=== PATIENT | male | born 1980 | race Two or more races ===

== ENCOUNTER 2017-12-18 11:08 | Emergency (ER) | payer MEDICAID, OTHER ==
[~2017-12-18] VITALS: Ht 177.8 cm; Wt 113.6 kg
[2017-12-18 11:09] VITALS: BP 149/119
== END 2017-12-18 12:07 ==
LOC: ER 11:08 → EEVIPCON 11:08 → ER 12:07
DX: F41.9 Anxiety disorder, unspecified (principal); I10 Essential (primary) hypertension; Z95.0 Presence of cardiac pacemaker
CPT/HCPCS: 71045; 99284

== ENCOUNTER 2020-04-10 18:30 | Emergency (ER) | payer OTHER ==
[~2020-04-10] VITALS: Ht 175.3 cm; Wt 110.0 kg
[2020-04-10] MEDS ORDERED: aspirin 81mg tab.chew PO ONE (19:05)
[2020-04-10] MEDS ORDERED: normal saline 1000ml 1,000 ML IV ONE (19:05)
--- NOTE | 2020-04-10 19:14 | NUR ---
PT REFUSING A BLOOD DRAW. WILL ATTEMPT TO DRAW FROMO THE IV LINE. GLYNN VALENTIN IN ROOM NOW TO EVALUATE,
[2020-04-10 19:25] LABS: BASOPHILS # (AUTO) 0.1 X10'3 (0-0.2); BASOPHILS % (AUTO) 1.1 % (0-1); EOSINOPHILS # (AUTO) 0.1 X10'3 (0-0.9); EOSINOPHILS % (AUTO) 1.6 % (0-6); HEMATOCRIT 41.8 % (42.0-52.0); HEMOGLOBIN 14.1 g/dl (14.0-17.9); LYMPHOCYTES # (AUTO) 3.6 X10'3 (1.1-4.8); LYMPHOCYTES % (AUTO) 50.1 % (21-51); MEAN CORPUSCULAR HEMOGLOBIN 31.5 PG (27.0-31.0); MEAN CORPUSCULAR HGB CONC 33.8 g/dL (33.0-36.5); MEAN CORPUSCULAR VOLUME 93.2 FL (78-98); MONOCYTES # (AUTO) 0.4 X10'3 (0-0.9); MONOCYTES % (AUTO) 5.2 % (2-12); PLATELET COUNT 215 X10'3 (140-440); RED BLOOD COUNT 4.49 X10'6 (4.70-6.10); WHITE BLOOD COUNT 7.2 X10'3 (4.5-11.0)
[2020-04-10 19:37] LABS: ALANINE AMINOTRANSFERASE 31 U/L (12-78); ALBUMIN 3.4 G/DL (3.4-5.0); ALBUMIN/GLOBULIN RATIO 0.9 (1.1-1.5); ALKALINE PHOSPHATASE 100 IU/L (46-116); ANION GAP 7 (8-16); ASPARTATE AMINO TRANSFERASE 28 U/L (10-37); BILIRUBIN,TOTAL 0.1 MG/DL (0.1-1.0); BLOOD UREA NITROGEN 14 MG/DL (7-18); BUN/CREATININE RATIO 15.1 (5.4-32.0); CALCIUM 8.3 MG/DL (8.5-10.1); CHLORIDE 108 MMOL/L (99-107); CREATININE 0.93 MG/DL (0.60-1.10); GLUCOSE 114 MG/DL (70-104); POTASSIUM 3.7 MMOL/L (3.5-5.1); SODIUM 141 MMOL/L (135-145); TOTAL CARBON DIOXIDE 25.9 MMOL/L (24-32); TOTAL PROTEIN 7.2 G/DL (6.4-8.2); eGFR > 90 ML/MIN
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
[2020-04-10 19:55] VITALS: BP 140/58
[2020-04-11] MEDS ORDERED: PANT-47 PO (04:20)
== END 2020-04-10 19:57 | disposition left against medical advice (07) ==
LOC: ER 18:30
DX: E86.0 Dehydration (principal); R55 Syncope and collapse; R53.83 Other fatigue; I10 Essential (primary) hypertension; F17.210 Nicotine dependence, cigarettes, uncomplicated; Z95.0 Presence of cardiac pacemaker; Z72.89 Other problems related to lifestyle; Z56.0 Unemployment, unspecified; Z59.0 Homelessness; Z79.899 Other long term (current) drug therapy
CPT/HCPCS: 36415; 80053; 83735; 83880; 84484; 85025; 93005; 99284

== ENCOUNTER 2020-04-11 00:31 | Emergency (ER) | payer OTHER ==
[~2020-04-11] VITALS: Ht 175.3 cm; Wt 111.4 kg
[2020-04-11 00:42] VITALS: BP 142/94
[2020-04-11] MEDS ORDERED: ondansetron 4mg rapidly disintigrating tab PO ONE (03:15)
[2020-04-11] MEDS ORDERED: pantoprazole 40mg Tablet.DR PO ONE (03:15)
[2020-04-11] MEDS ORDERED: PANT-47 PO (04:20)
== END 2020-04-11 04:30 | disposition home or self-care (01) ==
LOC: ER 00:32
DX: E86.0 Dehydration (principal); R11.10 Vomiting, unspecified; R10.13 Epigastric pain; R07.89 Other chest pain; I10 Essential (primary) hypertension; K21.9 Gastro-esophageal reflux disease without esophagitis; F17.200 Nicotine dependence, unspecified, uncomplicated; Z72.89 Other problems related to lifestyle; Z59.0 Homelessness; Z56.0 Unemployment, unspecified; Z95.0 Presence of cardiac pacemaker; Z79.899 Other long term (current) drug therapy
CPT/HCPCS: 36415; 83690; 93005; 99284

== ENCOUNTER 2021-05-08 10:19 | Emergency (ER) | payer SELFPAY ==
[~2021-05-08] VITALS: Ht 175.3 cm; Wt 97.7 kg
[~2021-05-08 10:19] MED LIST: PANT-47 PO
[2021-05-08 10:23] VITALS: BP 129/82
== END 2021-05-08 12:04 ==
LOC: ER 10:20
DX: G56.31 Lesion of radial nerve, right upper limb (principal); I10 Essential (primary) hypertension; K21.9 Gastro-esophageal reflux disease without esophagitis; Z72.89 Other problems related to lifestyle; Z59.0 Homelessness; Z56.0 Unemployment, unspecified; Z79.899 Other long term (current) drug therapy
CPT/HCPCS: 29125; 70450; 99284

== ENCOUNTER 2025-01-17 18:19 | Emergency (ER) | payer MEDICAID ==
[~2025-01-17] VITALS: Ht 177.8 cm; Wt 75.0 kg
[2025-01-17 18:24] VITALS: BP 126/63; PULSE 98; RESP 15; TEMP 97.9; O2SAT 99
[2025-01-17 18:59] LABS: BASOPHILS % (AUTO) 0.5 % (0-1); EOSINOPHILS # (AUTO) 0.1 X10'3 (0-0.9); EOSINOPHILS % (AUTO) 1.2 % (0-6); HEMATOCRIT 36.3 % (42.0-52.0); HEMOGLOBIN 12.3 g/dl (14.0-17.9); LYMPHOCYTES # (AUTO) 1.9 X10'3 (1.1-4.8); LYMPHOCYTES % (AUTO) 29.2 % (21-51); MEAN CORPUSCULAR HEMOGLOBIN 29.3 PG (27.0-31.0); MEAN CORPUSCULAR VOLUME 86.2 FL (78-98); MEAN PLATELET VOLUME 8.6 FL (7.4-10.4); MONOCYTES # (AUTO) 0.5 X10'3 (0-0.9); MONOCYTES % (AUTO) 8.3 % (2-12); NEUTROPHILS % (AUTO) 60.8 % (42-75); PLATELET COUNT 172 X10'3 (140-440); RED BLOOD COUNT 4.22 X10'6 (4.70-6.10); WHITE BLOOD COUNT 6.6 X10'3 (4.5-11.0)
--- NOTE | 2025-01-17 19:12 | RADIOLOGY REPORT ---
Clinical History CP Comparison None Without Contrast JAY HUDSON, [id number] TECHNIQUE: AP view of the chest FINDINGS: Left-sided pacemaker. No confluent airspace opacity to suggest pneumonia or alveolar edema. No pleural effusion or pneumothorax identified. Cardiomediastinal silhouette is within normal limits. Visualized osseous structures are grossly intact. IMPRESSION: No evidence of acute cardiopulmonary process. This report was electronically signed by Alejandro Rand MD on 01/17/2025 7:09:15 PM.
[2025-01-17 19:25] LABS: ALANINE AMINOTRANSFERASE 26 U/L (12-78); ALBUMIN 3.7 G/DL (3.4-5.0); ALBUMIN/GLOBULIN RATIO 1.1 (1.1-1.5); ALKALINE PHOSPHATASE 85 IU/L (46-116); ANION GAP 9 (8-16); ASPARTATE AMINO TRANSFERASE 22 U/L (10-37); BILIRUBIN,TOTAL 0.5 MG/DL (0.1-1.0); BLOOD UREA NITROGEN 16 MG/DL (7-18); BUN/CREATININE RATIO 19.8 (10.0-20.0); CALCIUM 8.5 MG/DL (8.5-10.1); CHLORIDE 107 MMOL/L (99-107); CREATININE 0.81 MG/DL (0.60-1.10); GLUCOSE 105 MG/DL (70-104); POTASSIUM 3.9 MMOL/L (3.5-5.1); SODIUM 145 MMOL/L (135-145); TOTAL CARBON DIOXIDE 29.4 MMOL/L (24-32); TOTAL PROTEIN 7.1 G/DL (6.4-8.2); eCRCL 123 ML/MIN; eGFR > 90 ML/MIN
[2025-01-17 19:27] LABS: PRO BRAIN NATRIURETIC PEPTIDE 178 PG/ML (0-125)
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
== END 2025-01-17 22:16 | disposition left against medical advice (07) ==
LOC: ER 18:21
DX: R60.0 Localized edema (principal); I10 Essential (primary) hypertension; Z95.0 Presence of cardiac pacemaker; V89.2XXA Person injured in unspecified motor-vehicle accident, traffic, initial encounter; Y93.89 Activity, other specified; Y92.410 Unspecified street and highway as the place of occurrence of the external cause; Y99.8 Other external cause status
CPT/HCPCS: 36415; 71045; 80053; 83880; 84484; 85025; 93005; 99285

== ENCOUNTER 2025-01-19 | Emergency (ER) | payer MEDICAID ==
[2025-01-19 00:07] VITALS: BP 142/91; PULSE 83; TEMP 97; O2SAT 100
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
[2025-01-19 02:41] VITALS: RESP 15
[2025-01-19] MEDS: ketorolac trometh 30MG/ML vial 30 MG/ML VIAL IM ONE (02:41)
== END 2025-01-19 02:43 | disposition left against medical advice (07) ==
LOC: ER 00:01
DX: S90.31XA Contusion of right foot, initial encounter (principal); G89.11 Acute pain due to trauma; M25.572 Pain in left ankle and joints of left foot; M25.571 Pain in right ankle and joints of right foot; K21.9 Gastro-esophageal reflux disease without esophagitis; I10 Essential (primary) hypertension; F10.90 Alcohol use, unspecified, uncomplicated; Z59.00 Homelessness unspecified; Z95.0 Presence of cardiac pacemaker; Z79.899 Other long term (current) drug therapy; Z56.0 Unemployment, unspecified; V19.40XA Pedal cycle driver injured in collision with unspecified motor vehicles in traffic accident, initial encounter; Y93.55 Activity, bike riding; Y92.89 Other specified places as the place of occurrence of the external cause; Y99.8 Other external cause status; Y90.9 Presence of alcohol in blood, level not specified
CPT/HCPCS: 73590; 73610; 73630; 96372; 99284; J1885

== ENCOUNTER 2025-07-09 10:42 | Emergency (ER) | payer MEDICAID ==
[~2025-07-09] VITALS: Ht 175.3 cm; Wt 74.2 kg
[2025-07-09 10:45] VITALS: BP 119/76; PULSE 83; RESP 16; TEMP 98; O2SAT 98
--- NOTE | 2025-07-09 12:06 | Physician Documentation ---
History of Present Illness ~ General Chief Complaint: See Chief Complaint Stated Complaint: PACEMAKER MALFUNCTION Time Seen by MD: 11:52 Primary Medical Doctor: None History of Present Illness Initial Comments 45-year-old male presents to the ED because he was advised he needs to have his pacemaker interrogated secondary to possible replacement. He is concerned about the battery life. Denies any symptoms denies any chest pain shortness of breath palpitations or any other cardiac abnormality Medication Reconciliation Allergies: Coded Allergies: No Known Allergies (Unverified , 01/19/25) Scheduled Pantoprazole Sodium (PROTONIX tablet), 1 TAB PO DAILY Past Medical History Past Medical History: *CARDIOVASCULAR*, Arrhythmia, Hypertension, GERD Past Surgical History: pacemaker Alcohol Use: Alcoholic Drug Use: none Lives with: Other Lives In: Homeless Occupation: unemployed Review of Systems All Other Systems at this time: Reviewed and Negative ROS As stated above in the HPI, otherwise all systems are reviewed and negative. Physical Exam Physical Exam Vital Signs: Temperature: 98.0, Source: Temporal, Heart Rate: 83, Respiratory Rate: 16, BP: 119/76, Pulse Oximetry: 98, Weight: 74.200 Oxygen Flow Rate: 0 Physical Exam General: Alert, no apparent distress. HEENT: PERRL, EOMI, no injection, moist mucous membranes. Neck: Full range of motion. Respiratory: Lungs clear, no respiratory distress. Chest: No accessory muscle use. Cardiovascular: Regular rate and rhythm, no murmurs. Gastrointestinal: Soft, nontender, nondistended. Bowels sounds present. Extremities: Normal range of motion, no deformity. Neurologic: Oriented x4. Psychiatric: Normal mood and affect. Skin: Normal color, warm and dry. No edema, no ecchymosis. Progress Results/Orders Results/Orders Vital Signs 07/09/25 10:45 Temp 98.0 Pulse 83 Resp 16 B/P (MAP) 119/76 Pulse Ox 98 O2 Flow Rate 0 Medical Decision Making Additional information obtaine: N/A Findings h patient's pacemaker was interrogated and showed no signs of abnormalities and stated that he has 1.5 years left in battery life. The patient remains asymptomatic and is otherwise healthy.. At this time I am going to discharge him and have him follow up with his taping foreman's for further concerns Differential Diagnosis bb Departure Disposition: HOME / SELF CARE / HOMELESS Impression: Primary Impression: Pacemaker Condition: Stable Additional Instructions: As I instructed you you still have a proximally 1.5 years of battery life your pacemaker. If you have any further concerns I recommend following up with the your taping foreman's. Referrals: NO PRIMARY CARE PROVIDER (PCP) Signature Scribe Signature: g Attestation: Scribed for Troy Joiner Feather Boner by Troy Ramirez NP . 07/09/25 18:54 TROY JOINER NP Jul 09, 2025 12:06
== END 2025-07-09 12:34 | disposition home or self-care (01) ==
LOC: ER 10:42
DX: T82.119A Breakdown (mechanical) of unspecified cardiac electronic device, initial encounter (principal); I10 Essential (primary) hypertension; K21.9 Gastro-esophageal reflux disease without esophagitis; F10.90 Alcohol use, unspecified, uncomplicated; Z95.0 Presence of cardiac pacemaker; Z79.899 Other long term (current) drug therapy; Z59.00 Homelessness unspecified; Z56.0 Unemployment, unspecified; Y90.9 Presence of alcohol in blood, level not specified; Y71.2 Prosthetic and other implants, materials and accessory cardiovascular devices associated with adverse incidents
CPT/HCPCS: 99282